=== PATIENT | female | born 1985 | race Caucasian/White ===

== ENCOUNTER 2016-07-21 03:19 | Emergency (ER) | payer MEDICAID, OTHER ==
[~2016-07-21] VITALS: Ht 170.2 cm; Wt 88.0 kg
[~2016-07-21 03:19] MED LIST: HYDR-3533 PO; NAPR-576 PO
[2016-07-21 03:20] VITALS: BP 152/82; PULSE 99; RESP 14; O2SAT 100
[2016-07-21 03:25] VITALS: BP 149/81; PULSE 84; RESP 16; TEMP 98.3; O2SAT 99
[2016-07-21] MEDS ORDERED: SODIUM CHLOR 0.9% 1000 ML INJ 1,000 ML IV ONE (03:30)
--- NOTE | 2016-07-21 03:34 | PD ---
HPI Chief Complaint: Alcohol/Drug Intoxication Time Seen by Provider: 03:31 Travel History International Travel<30 days: No Contact w/Intl Traveler<30days: No Traveled to known affect area: No History of Present Illness HPI 30-year-old female presents to the emergency department by [facility] department for alcohol intoxication. She is apparently found in an alley with her boyfriend and was intoxicated. The patient is tearful, but answers questions appropriately. She has bruising noted to her right eye orbit, but she states she is unsure how she got this. According to EMS, the boyfriend states that she leaned against a wall and slid down the wall, possibly causing the bruise. She reports a history of endometriosis. She states she is not currently on any medications. She denies . Patient denies any medical complaints at this time. She is obviously intoxicated and slurring her words. PFSH Past Medical History Heart Rhythm Problems: Yes (Heart murmur as child) Cardiovascular Problems: Yes (HEART MURMUR) Cerebrovascular Accident: Yes ?: Not LMP: unk : 4 Para: 3 : 1 Past Surgical History Oral Surgery: Yes ([place] teeth) Social History Alcohol Use: Yes (Occ.) Tobacco Use: Yes (4-5 cigarettes/day) Substance Use: No Allergies-Medications (Allergen,Severity, Reaction): Coded Allergies: No Known Allergies (Verified , 07/21/16) Reported Meds & Prescriptions Reported Meds & Active Scripts Active No Active Prescriptions or Reported Medications Review of Systems Except as stated in HPI: all other systems reviewed are Neg Physical Exam Narrative GENERAL: Well-nourished, well-developed female patient, afebrile. Patient is oriented to person, place, time. SKIN: Focused skin assessment warm/dry. HEAD: Normocephalic. Patient has ecchymosis noted to the right eye orbit and swelling to the right upper eyelid. EYES: No scleral icterus. No injection or drainage. PERRLA. ENT: Mucosa pink and moist. No erythema or exudates. No uvular edema. No uvular , palatal, or tonsillar deviation. Airway patent. Nasal turbinates appear normal without nasal blood, purulent drainage or septal hematoma. Bilateral tympanic membranes are clear without erythema or perforation. NECK: Supple, trachea midline. No JVD or lymphadenopathy. CARDIOVASCULAR: Regular rate and rhythm without murmurs, gallops, or rubs. RESPIRATORY: Breath sounds equal bilaterally. No accessory muscle use. Lungs sounds are clear to auscultation. GASTROINTESTINAL: Abdomen soft, non-tender, nondistended. MUSCULOSKELETAL: No cyanosis, or edema. BACK: Nontender without obvious deformity. No CVA tenderness. Data Data Last Documented VS Vital Signs Date Time Temp Pulse Resp B/P Pulse Ox O2 Delivery O2 Flow Rate FiO2 07/21/16 06:15 92 14 138/78 99 Room Air 07/21/16 03:25 98.3 Orders Iv Access Insert/Monitor (07/21/16 03:29) Basic Metabolic Panel (Bmp) (07/21/16 03:29) Ed Urine Pregnancytest Poc (07/21/16 03:29) Alcohol (Ethanol) (07/21/16 03:29) Sodium Chlor 0.9% 1000 Ml Inj (Ns 1000 M (07/21/16 03:30) Ct Brain W/O Iv Contrast(Rout) (07/21/16 ) Ct Facial Bones W/O Iv Cont (07/21/16 ) Ct Cerv Spine W/O Contrast (07/21/16 ) Potassium Chloride (Kcl) (07/21/16 04:45) Labs Laboratory Tests Test 07/21/16 03:36 Sodium Level 136 MEQ/L Potassium Level 3.2 MEQ/L Chloride Level 104 MEQ/L Carbon Dioxide Level 21.6 MEQ/L Anion Gap 10 MEQ/L Blood Urea Nitrogen 5 MG/DL Creatinine 0.73 MG/DL Estimat Glomerular Filtration 94 ML/MIN Rate Random Glucose 104 MG/DL Calcium Level 8.0 MG/DL Ethyl Alcohol Level 370 MG/DL MDM Medical Decision Making Medical Screen Exam Complete: Yes Emergency Medical Condition: Yes Medical Record Reviewed: Yes Interpretation(s) Last Impressions Head CT 07/21/16 0000 Signed Impressions: Service Date/Time: Thursday, July 21, 2016 05:27 - CONCLUSION: Normal examination. Jose Walsh MD Cervical Spine CT 07/21/16 0000 Signed Impressions: Service Date/Time: Thursday, July 21, 2016 05:27 - CONCLUSION: Normal examination. Jose Walsh MD CT facial bones - CONCLUSION: Normal examination except for soft tissue swelling overlying the right orbital region. Differential Diagnosis Alcohol intoxication versus contusion versus fracture versus intracranial abnormality versus closed head injury Narrative Course 30-year-old female presents to the emergency department for alcohol intoxication. Patient is obviously intoxicated on exam. She does have ecchymosis noted to the right eye orbit and she cannot tell me how she got this. IV access is established. BMP, urine test, alcohol level are ordered and pending. CT of the brain, facial bones, cervical spine are ordered and pending. Patient is given normal saline 1 L IV bolus. BMP shows hypokalemia at 3.2. Alcohol level is 370. UPT is negative. CT of the brain is normal. CT of the facial bones is Normal examination except for soft tissue swelling overlying the right orbital region. CT of the cervical spine is normal. Patient is given potassium 40 meq by mouth for hypokalemia. She will be allowed to sleep in the emergency department until she is able to ambulate to go home with her boyfriend who is at her bedside. The patient was discharged in stable condition with instructions, including return instructions and follow up instructions. Diagnosis Primary Impression: Alcohol intoxication Qualified Code: F10.920 - Alcohol intoxication, uncomplicated Additional Impression: Facial contusion Qualified Code: S00.83XA - Facial contusion, initial encounter Referrals: Primary Care Physician call for appointment Patient Instructions: Alcohol Intoxication (ED), Facial Contusion (ED), General Instructions Additional Instructions: Please drink alcohol in moderation. Ice for 20 minutes 4-5 times daily. [id number] Tylenol/ibuprofen for pain. Follow-up with your primary care physician. Return to the emergency department for any acute worsening of symptoms. Med/Other Pt SpecificInfo: No Change to Meds Scripts No Active Prescriptions or Reported Meds Disposition: 01 DISCHARGE HOME Condition: Stable Karen Thomas NILDA July 21, 2016 03:34
[2016-07-21 04:19] LABS: BICARBONATE 21.6 MEQ/L (21.0-32.0); POTASSIUM 3.2 MEQ/L (3.5-5.1)
[2016-07-21 04:30] VITALS: BP 146/89; PULSE 94; RESP 12; O2SAT 98
[2016-07-21] MEDS ORDERED: POTASSIUM CHLORIDE 20 MEQ CONTROLLED RELEASE TAB PO ONE (04:45)
--- NOTE | 2016-07-21 05:42 | RADRPT ---
EXAM DATE/TIME: 07/21/2016 05:27 [facility] COMPARISON: No previous studies available for comparison. INDICATIONS : Bilateral black eyes; unknown source of trauma. ETOH RADIATION DOSE: 45.68 CTDIvol (mGy) MEDICAL HISTORY : Non-responsive. SURGICAL HISTORY : Non-responsive. ENCOUNTER: Initial ACUITY: 1 day PAIN SCALE: Non-responsive LOCATION: cranial TECHNIQUE: Multiple contiguous axial images were obtained of the head. Using automated exposure control and adj ustment of the mA and/or kV according to patient size, radiation dose was kept as low as reasonably a chievable to obtain optimal diagnostic quality images. FINDINGS: CEREBRUM: The ventricles are normal for age. No evidence of midline shift, mass lesion, hemorrhage or acute in farction. No extra-axial fluid collections are seen. POSTERIOR FOSSA: The cerebellum and brainstem are intact. The 4th ventricle is midline. The cerebellopontine angle i s unremarkable. EXTRACRANIAL: The visualized portion of the orbits is intact. SKULL: The calvaria is intact. No evidence of skull fracture. CONCLUSION: Normal examination. Jose Walsh MD on July 21, 2016 at 5:40 Board Certified Radiologist. This report was verified electronically.
--- NOTE | 2016-07-21 05:57 | RADRPT ---
EXAM DATE/TIME: 07/21/2016 05:27 [facility] COMPARISON: No previous studies available for comparison. INDICATIONS : Trauma; patient is unresponsive. ETOH. RADIATION DOSE: 25.23 CTDIvol (mGy) MEDICAL HISTORY : Non-responsive. SURGICAL HISTORY : Non-responsive. ENCOUNTER: Initial ACUITY: 1 day PAIN SCALE: Non-responsive LOCATION: neck TECHNIQUE: Volumetric scanning of the cervical spine was performed. Multiplanar reconstructions in the sagittal, coronal and oblique axial planes were performed. Using automated exposure control and adjustment o f the mA and/or kV according to patient size, radiation dose was kept as low as reasonably achievable to obtain optimal diagnostic quality images. FINDINGS: VERTEBRAE: Normal vertebral body height. ALIGNMENT: No evidence of subluxation. C2-C3: The bony spinal canal is normal in size. No evidence of disc bulge or herniation. The neural forami na are bilaterally patent. C3-C4: The bony spinal canal is normal in size. No evidence of disc bulge or herniation. The neural forami na are bilaterally patent. C4-C5: The bony spinal canal is normal in size. No evidence of disc bulge or herniation. The neural forami na are bilaterally patent. C5-C6: The bony spinal canal is normal in size. No evidence of disc bulge or herniation. The neural forami na are bilaterally patent. C6-C7: The bony spinal canal is normal in size. No evidence of disc bulge or herniation. The neural forami na are bilaterally patent. C7-T1: The bony spinal canal is normal in size. No evidence of disc bulge or herniation. The neural forami na are bilaterally patent. CONCLUSION: Normal examination. Jose Walsh MD on July 21, 2016 at 5:55 Board Certified Radiologist. This report was verified electronically.
[2016-07-21 06:15] VITALS: BP_SYST 138; BP_DIAS 66; BP_DIAS 78; PULSE 92; RESP 14; O2SAT 99
--- NOTE | 2016-07-21 06:38 | RADRPT ---
EXAM DATE/TIME: 07/21/2016 05:27 [facility] COMPARISON: No previous studies available for comparison. INDICATIONS : Trauma; bilateral black eyes. ETOH RADIATION DOSE: 61.10 CTDIvol (mGy) MEDICAL HISTORY : Non-responsive. SURGICAL HISTORY : Non-responsive. ENCOUNTER: Initial ACUITY: 1 day PAIN SCORE: Non-responsive LOCATION: facial TECHNIQUE: Volumetric scanning of the facial bones was performed. Using automated exposure control and adjustme nt of the mA and/or kV according to patient size, radiation dose was kept as low as reasonably achiev able to obtain optimal diagnostic quality images. FINDINGS: ORBITS: The orbital and infraorbital osseous structures are intact. The retroconal structures have a normal configuration. No radiopaque foreign bodies are seen. NASAL BONE: The nasal bone and maxillary spine are intact ZYGOMATIC ARCHES: Symmetric without evidence of fracture. SINUSES: The maxillary, ethmoid and frontal sinuses are intact. No air-fluid levels seen. NASAL CAVITY: The nasal septum is intact and midline. The lacrimal ducts are intact. SOFT TISSUES: No radiopaque foreign bodies seen. Soft tissue swelling noted overlying the right orbital region. INTRACRANIAL: No intracranial air seen. CRIBIFORM PLATE: Grossly intact. CONCLUSION: Normal examination except for soft tissue swelling overlying the right orbital region. Jose Walsh MD on July 21, 2016 at 6:36 Board Certified Radiologist. This report was verified electronically.
== END 2016-07-21 09:37 | disposition home or self-care (01) ==
LOC: NEPD 03:19
DX: F10.920 Alcohol use, unspecified with intoxication, uncomplicated (principal); S00.83XA Contusion of other part of head, initial encounter; E87.6 Hypokalemia; Z72.0 Tobacco use; Z87.42 Personal history of other diseases of the female genital tract; Z86.79 Personal history of other diseases of the circulatory system; X58.XXXA Exposure to other specified factors, initial encounter
CPT/HCPCS: 70450; 70486; 72125; 80048; 80307; 84703; 96360; 96361; 99285; J7030